=== PATIENT | female | born 1990 | race Caucasian/White ===

== ENCOUNTER 2023-04-02 09:18 | Emergency (ER) | payer BC, SELFPAY ==
--- NOTE | ~2023-04-02 | US_ITS ---
EXAMINATION: US pelvic complete w TV DATE: 04/02/2023 10:30 INDICATION: Suprapubic pain TECHNIQUE: Multiple transabdominal and endovaginal sonographic images of the pelvis were obtained. COMPARISON: None. FINDINGS: The uterus measures 8.3 x 3.5 x 5 cm. An IUD is present in the uterus in expected position. . The endometrial complex measures 4 mm. The right ovary measures 2.9 x 2 x 3.1 cm. The left ovary me asures 3.1 x 1.9 x 1.9 cm. There is normal vascular flow in the ovaries. There is no free fluid in th e pelvis. IMPRESSION: 1. No sonographic correlate for the patient's symptoms. Reviewed, dictated and finalized at location A.
--- NOTE | ~2023-04-02 | CT_ITS ---
EXAMINATION: CT abdomen pelvis w con DATE: 04/02/2023 10:37 INDICATION: Left lower quadrant and suprapubic pain. TECHNIQUE: Computed tomography (CT) of the abdomen and pelvis was performed without intravenous contr ast. The dose-length product was 1399.16 mGy-cm. Automated exposure control and iterative reconstruct ion technique were employed. COMPARISON: None. FINDINGS: Heart size normal. No significant pleural or pericardial effusion. There is mild thickening of the distal esophagus, consistent with esophagitis. Nonobstructive bowel pattern. Moderate colonic fecal loading. There is an IUD in the endometrium. Fatty infiltration of the liver. The gallbladder is present. The spleen, pancreas, adrenal glands and kidneys are unremarkable. No significant vascular abnormality. No lymphadenopathy. Bladder is unrema rkable. No abnormal pelvic masses or fluid collections. There is moderate degenerative disc disease a t L4-5. No acute bone or joint abnormality. No free air or free fluid. IMPRESSION: 1. Mild thickening of the distal esophagus, suspicious for esophagitis. 2: Hepatic steatosis. Reviewed, dictated and finalized at location []
[2023-04-02 09:25] VITALS: BP 135/89; PULSE 119; RESP 18; TEMP 36.7; O2SAT 98
--- NOTE | 2023-04-02 09:33 | ECG_ITS ---
Measurements Intervals [place] Rate: 101 P: 29 NC: 147 QRS: 6 QRSD: 86 T: 15 QT: 329 QTc: 427 Interpretive Statements SINUS TACHYCARDIA POOR R-WAVE PROGRESSION WITH LOW QRS VOLTAGE ABNORMAL RHYTHM ECG NO PREVIOUS ECG AVAILABLE FOR COMPARISON Electronically Signed On 04-02-2023 13:31:49 CDT by Rajiv Alamo M.D.
--- NOTE | 2023-04-02 09:35 | ED.ABDPAIN ---
HPI - Abdominal Pain General Chief Complaint: Abdominal Pain <CARMELITA Bah Last Filed: 04/02/23 18:13> Stated Complaint: L ABD PAIN X1DAY <CARMELITA Bah Last Filed: 04/02/23 18:13> Time Seen by Provider: 04/02/23 09:26 <Shasha Frey PA-C - Last Filed: 04/02/23 18:13> History of Present Illness HPI narrative: 33 y/o female with a history of GERD reports for evaluation of left lower quadrant/suprapubic pain that started last night around 10 PM. Patient states she had a sudden onset sharp pain in her left lower quadrant region that lasted approximately 10 to 15 minutes. She states at that time she experienced lightheadedness secondary to the pain that resolved after the pain ended, denies LOC. States the sharp pain resolved, however she has had a dull ache with intermittent twinges of pain since. Patient reports she called her RUBBER TRIMMER's office who advised her to come to the ED. She states on her way to the ED this morning, she developed left low back pain. She also states she feels like her heart is skipping beats which has been present for multiple years. She has not been evaluated for this. Denies fever, body aches or chills, chest pain or shortness of breath, urinary complaints, vaginal bleeding or discharge, concern for STDs, syncope. LMP 5/15. Last bowel movement was yesterday and normal. <CARMELITA Bah Last Filed: 04/02/23 18:13> Related Data Home Medications: Home Medications Medication Instructions Recorded Confirmed bupropion HCl 300 mg 24 hr tablet, 300 mg PO QAM 02/12/22 extended release (Wellbutrin XL) sertraline 50 mg tablet (Zoloft) 50 mg PO DAILY 02/12/22 simvastatin 10 mg tablet 10 mg PO DAILY 02/12/22 <CARMELITA Bah Last Filed: 04/02/23 18:13> Allergies/Adverse Reactions: Allergies Allergy/AdvReac Type Severity Reaction Status Date / Time No Known Allergies Allergy Verified 04/02/23 09:37 <CARMELITA Bah Last Filed: 04/02/23 18:13> Review of Systems Review of Systems: CONSTITUTIONAL: Denies fever, chills EYES: Denies visual changes, redness, or discharge. ENT: Denies rhinorrhea, congestion, sore throat, or otalgia. CARDIOVASCULAR: See HPI RESPIRATORY: Denies cough or dyspnea. GASTROINTESTINAL: See HPI GENITOURINARY: Denies dysuria or hematuria. SKIN: Denies rash or itching. MUSCULOSKELETAL: See HPI NEUROLOGIC: Denies headache, numbness, dizziness, or weakness. PSYCHIATRIC: Denies anxiety or depression. <Shasha Frey PA-C - Last Filed: 04/02/23 18:13> [facility] Past Medical History Medical History: Medical History Anxiety Encounter for Nexplanon removal (~05/2015) High cholesterol Insertion of Nexplanon (~11/2013) <Shasha Frey PA-C - Last Filed: 04/02/23 18:13> Surgical History Surgical History: Surgical History H/O nasal septoplasty (~03/2011) History of gynecological procedure insertion of ParaGard <Shasha Frey PA-C - Last Filed: 04/02/23 18:13> Family History Family History: Family History Mother Diabetes mellitus Hypertension Hypothyroid Father Hypercholesteremia Other Acute myocardial infarction <Shasha Frey PA-C - Last Filed: 04/02/23 18:13> Social History Social History: Social History Smoking status: Never smoker Alcohol intake: current Alcohol use details: occasional Substance use: never Substance use type: does not use Living arrangements: with family Occupation/Education: occupation 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
[2023-04-02] MEDS: SODIUM CHLORIDE 0.9% IV 1,000 ML 999 ML IV CONT (09:43)
[2023-04-02] MEDS: ONDANSETRON INJ 4 MG/2 ML VIAL IV PUSH (09:43)
[2023-04-02 09:55] LABS: Basophils Percent Auto 0.3 % (0.2-1.2); Eosinophils Absolute Auto 0.2 K/mm3 (0-0.3); Eosinophils Percent Auto 2.7 % (0-4.4); Hematocrit 43.6 % (37.0-47.0); Hemoglobin 14.1 g/dL (12.0-15.0); Immature Granulocyte Absolute 0.01 K/mm3 (0.00-0.031); Immature Granulocyte Percent A 0.1 % (0-0.5); Lymphocytes Absolute Auto 2.22 K/mm3 (0.9-3.2); Lymphocytes Percent Auto 31.4 % (18.3-44.2); Mean Corpuscular HGB Conc 32.3 g/dl (32-36); Mean Corpuscular Volume 86.7 fl (80-100); Mean Platelet Volume 10.9 fl (7.4-10.4); Monocytes Absolute Auto 0.5 K/mm3 (0.1-0.6); Monocytes Percent Auto 6.5 % (2.6-8.5); Neutrophils Absolute Auto 4.2 K/mm3 (1.3-6.7); Platelet Count Result 246 k/mm3 (150-375); Red Blood Count 5.03 M/mm3 (4.2-5.4); Red Cell Distribution Width 13.2 % (11.5-14.5); White Blood Count 7.1 K/mm3 (4.5-10.0)
[2023-04-02 10:00] LABS: Bacteria Urine None Seen /hpf; Non Pathogenic Casts 0-2; RBC Urine 0-2 /hpf (0-2); Squamous Epithelial Cell Urine Occasional /hpf (Few); WBC Urine 0-5 /hpf
[2023-04-02 10:08] LABS: Alanine Aminotransferase 35 U/L (6-35); Albumin Level 4.8 g/dL (3.5-5.1); Alkaline Phosphatase 76 U/L (38-126); Anion Gap 11 mmol/L (8-16); Aspartate Amino Transferase 27 U/L (14-36); Bilirubin,Total 1.2 mg/dL (0.2-1.3); Blood Urea Nitrogen 10 mg/dL (7-17); Calcium 9.5 mg/dL (8.4-10.2); Carbon Dioxide 22 mmol/L (22-30); Chloride 106 mmol/L (98-107); Estimated CRCL calculation 129 ml/min; Estimated Glomerular Filt Rate > 60; Glucose 90 mg/dL (65-110); Lipase 82 U/L (23-300); Potassium 4.2 mmol/L (3.4-5.0); Sodium 139 mmol/L (137-145)
[2023-04-02 10:18] LABS: Appearance Urine Clear (Clear); Bilirubin Urine Negative (Negative); Blood Urine Negative (Negative); Color Urine Yellow (Yellow); Glucose Urine UA Negative (Negative); Ketones Urine Negative (Negative); Leukocyte Esterase Ur Negative LEU/UL (Negative); Nitrate Urine Negative (Negative); Protein Urine Negative (Negative); Specific Grav Ur 1.009 (1.001-1.035); Urobilinogen Urine 0.2 mg/dL (<2.0)
[2023-04-02 10:20] LABS: Troponin I < 0.012 ng/mL (0.000-0.034)
[2023-04-02 10:22] LABS: Add Urine Microscopic? YES
[2023-04-02 10:25] LABS: D Dimer < 0.27 ug/mL (<0.48)
[2023-04-02 13:29] LABS: Thyroid Stimulating Hormone Reflex 0.652 uIU/mL (0.465-4.68)
[2023-04-02 14:05] LABS: Magnesium 1.8 mg/dL (1.6-2.3)
[2023-04-02 14:47] VITALS: PULSE 86; RESP 20; O2SAT 98
== END 2023-04-02 14:58 | disposition home or self-care (01) ==
PROVIDERS: Emergency Provider Physician Assistant
DX: K20.90 Esophagitis, unspecified without bleeding (principal); K76.0 Fatty (change of) liver, not elsewhere classified; K21.9 Gastro-esophageal reflux disease without esophagitis; E78.00 Pure hypercholesterolemia, unspecified; F41.9 Anxiety disorder, unspecified
CPT/HCPCS: 36415; 74177; 76830; 76856; 80053; 81001; 81025; 83690; 83735; 84443; 84484; 85025; 85380; 92960; 93005; 96361; 96374; 99284; J2405; J7030; Q9967

== ENCOUNTER 2023-04-13 11:06 | Outpatient (CLI) | payer BC, SELFPAY | END 2023-04-13 11:07 | disposition home or self-care (01) | PROVIDERS: PCP Internal Medicine; Visit Provider Nurse Practitioner | DX: R14.0 Abdominal distension (gaseous) (principal); K58.1 Irritable bowel syndrome with constipation; Z91.018 Allergy to other foods | CPT/HCPCS: 36415; 86003 ==

== ENCOUNTER 2023-04-19 13:57 | Outpatient (CLI) | payer BC, SELFPAY ==
[2023-04-21 20:13] LABS: Immunoglobulin A 141 mg/dL (47-310); TTG IGA AB <1.0 U/mL (<15.0)
== END 2023-04-19 13:58 | disposition home or self-care (01) ==
PROVIDERS: PCP Internal Medicine; Visit Provider Nurse Practitioner Family
DX: R14.0 Abdominal distension (gaseous) (principal); K58.1 Irritable bowel syndrome with constipation; Z91.018 Allergy to other foods
CPT/HCPCS: 36415; 82784; 86364

== ENCOUNTER 2023-05-21 01:07 | Day surgery (SDC) | payer BC, SELFPAY ==
[2023-05-11 14:06] VITALS: BMI 36.8
[2023-05-21 06:23] VITALS: BP 122/74; PULSE 93; RESP 20; TEMP 36.2; O2SAT 100
[2023-05-21] MEDS: LACTATED RINGERS 1,000 ML 150 ML IV CONT (06:35)
--- NOTE | 2023-05-21 07:27 | WPDANESEPPF ---
Anes - Initial Pre Proc Eval Procedure: Operation Date: 05/21/23 07:30 Proposed Procedures p Esophagogastroduodenoscopy & Colonoscopy - Jaun Reyes MD Date/Time: 05/21/23 07:27 Surgeon: Jaun Reyes MD Pre Op Diagnosis: dysphagia,GERD,abnormal diagnostic imaging Patient Data Age: 33 Gender: F Height: 1.73 m Weight: 107 kg Last Vital Signs Temp 97.2 F L 05/21/23 06:23 Pulse 93 05/21/23 06:23 Resp 20 05/21/23 06:23 BP 122/74 05/21/23 06:23 Pulse Ox 100 05/21/23 06:23 O2 Del Method Room Air 05/21/23 06:23 Allergies Allergy/AdvReac Type Severity Reaction Status Date / Time wheat AdvReac Other Verified 05/21/23 06:18 Cow Dairy AdvReac Other Uncoded 05/21/23 06:18 Egg Whites AdvReac Other Uncoded 05/21/23 06:18 Home Medications Medication Instructions Recorded Confirmed Type sertraline 50 mg tablet (Zoloft) 100 mg PO DAILY 02/12/22 05/11/23 History liraglutide 0.6 mg/0.1 mL (18 mg/3 See Rx Instructions subcut .COMPLEX 04/13/23 05/11/23 History mL) subcutaneous pen injector (Victoza 2-Melvin) metformin 500 mg tablet 500 mg PO DAILY 04/13/23 05/11/23 History pantoprazole 40 mg tablet,delayed 40 mg PO DAILY #30 tabs 04/13/23 05/11/23 Rx release rosuvastatin 40 mg tablet 40 mg PO DAILY 04/13/23 05/11/23 History spironolactone 50 mg tablet 50 mg PO DAILY 05/11/23 05/11/23 History Patient hx anesthesia problems: none Family hx anesthesia problems: none Results Review: All pre-operative results and documents have been reviewed as part of the pre-operative evaluation. [facility] Past Medical History Medical History (Updated 04/13/23 @ 11:08 by Shelly Jeffers APRN) Abnormal CT scan, esophagus Allergy to wheat Anxiety Bloating Dysphagia Encounter for Nexplanon removal (~05/2015) Gastroesophageal reflux disease Hematochezia High cholesterol Insertion of Nexplanon (~11/2013) Irritable bowel syndrome with constipation Obesity (BMI 30-39.9) Surgical History Surgical History H/O nasal septoplasty (~03/2011) History of gynecological procedure insertion of ParaGard Family History Family History Mother Diabetes mellitus Hypertension Hypothyroid Father Hypercholesteremia Other Acute myocardial infarction Social History Social History Smoking status: Never smoker Alcohol intake: current Alcohol use details: occasional Substance use: never Substance use type: does not use Living arrangements: with family Occupation/Education: occupation 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 Gender identity (if verbalized by the patient): Female Sexual Orientation (if Verbalized by the Patient): Straight or Heterosexual Spiritual care concerns: No Anes - Eval Final PreProcedure Day of Procedure 05/21/23 07:27 Patient weight: obese Heart: regular rate and rhythm Lungs: clear to auscultation Airway: Mallampati scale class II Neurological: alert and oriented Last oral intake: >/= 8 hours ASA classification: III Emergent: no Anesthetic plan: proceed Anesthesia type and monitoring: general GIVS and standard monitoring Results Review: All pre-operative results and documents have been reviewed as part of the pre-operative evaluation. Informed Consent: The patient's anesthetic plan and its attendant risks and benefits were discussed with the patient/family/POA. Questions were solicited and answers provided to the satisfaction of the patient/family/POA.
--- NOTE | 2023-05-21 07:33 | PM.HPGS ---
History of Present Illness History of Present Illness Consent: Risks, benefits, and alternatives have been discussed and questions answered. Patient agrees to proceed with procedure. Chief complaint: dysphagia,GERD,abnormal diagnostic imaging Narrative: Fabby Lewis is a 33 year old female with gerd and dysphagia, better on ppi, also ibs-c. Never had scopes Review of Systems Constitutional: Constitutional: Denies headache(s) and Denies weakness Eyes: Eyes: Denies blurry vision ENT: Reports Normal hearing present, Denies headache(s) and Denies neck pain Cardiovascular: Cardiovascular: Denies chest pain and Denies dyspnea Respiratory: Respiratory: Denies dyspnea Gastrointestinal: Gastrointestinal: Reports no additional gastrointestinal complaints Genitourinary: Genitourinary: Denies dysuria Musculoskeletal: Musculoskeletal: Denies neck pain Integumentary/Breasts: Skin/Breast: Denies dry skin Neurologic: Reports Normal hearing present, Denies headache(s) and Denies weakness Psychiatric: Psychiatric: Denies anxiety Endocrine: Endocrine: Denies change in body appearance Hematologic/Lymphatic: Hematologic/Lymphatic: Denies easy bleeding Allergic/Immunologic: Allergic/Immunologic: Denies urticaria PMFSH Past Medical History Medical History (Updated 04/13/23 @ 11:08 by Shelly Jeffers, JESUS) Abnormal CT scan, esophagus Allergy to wheat Anxiety Bloating Dysphagia Encounter for Nexplanon removal (~05/2015) Gastroesophageal reflux disease Hematochezia High cholesterol Insertion of Nexplanon (~11/2013) Irritable bowel syndrome with constipation Obesity (BMI 30-39.9) Surgical History Surgical History H/O nasal septoplasty (~03/2011) History of gynecological procedure insertion of ParaGard Family History Family History Mother Diabetes mellitus Hypertension Hypothyroid Father Hypercholesteremia Other Acute myocardial infarction Social History Social History Smoking status: Never smoker Alcohol intake: current Alcohol use details: occasional Substance use: never Substance use type: does not use Living arrangements: with family Occupation/Education: occupation 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 Gender identity (if verbalized by the patient): Female Sexual Orientation (if Verbalized by the Patient): Straight or Heterosexual Spiritual care concerns: No Meds Home Medications and Allergies Home Medications Medication Instructions Recorded Confirmed Type sertraline 50 mg tablet (Zoloft) 100 mg PO DAILY 02/12/22 05/11/23 History liraglutide 0.6 mg/0.1 mL (18 mg/3 See Rx Instructions subcut .COMPLEX 04/13/23 05/11/23 History mL) subcutaneous pen injector (Victoza 2-Melvin) metformin 500 mg tablet 500 mg PO DAILY 04/13/23 05/11/23 History pantoprazole 40 mg tablet,delayed 40 mg PO DAILY #30 tabs 04/13/23 05/11/23 Rx release rosuvastatin 40 mg tablet 40 mg PO DAILY 04/13/23 05/11/23 History spironolactone 50 mg tablet 50 mg PO DAILY 05/11/23 05/11/23 History Allergies Allergy/AdvReac Type Severity Reaction Status Date / Time wheat AdvReac Other Verified 05/21/23 06:18 Cow Dairy AdvReac Other Uncoded 05/21/23 06:18 Egg Whites AdvReac Other Uncoded 05/21/23 06:18 Vital Signs Vital Signs - 24 hr 05/21/23 06:23 Temperature 97.2 F L Pulse Rate 93 Respiratory Rate 20 Blood Pressure 122/74 Pulse Oximetry 100 Oxygen Delivery Room Air Exam Const: General: comfortable and no acute distress HENMT: Face/Nose/Sinus: Normal nares present Eyes: General: appearance normal, both eyes and all related structures Neck: Neck: no JVD Resp: Auscultation: clear to auscultation bilaterally Cardio: Rate: regular rate Rhythm: regular rhythm GI:
[2023-05-21] MEDS: BENZOCAINE (*SP) 60 ML SPRAY CAN (HURRICAINE) 1 SPRAY MUCOUS MEM (07:36)
--- NOTE | 2023-05-21 07:53 | SUR.OPER ---
EGD ended at 744, colonoscopy start at 07
[2023-05-21 08:02] VITALS: BP 85/50; PULSE 87; RESP 18; O2SAT 97
[2023-05-21 08:12] VITALS: BP 93/57; PULSE 79; RESP 18; O2SAT 97
[2023-05-21 08:22] VITALS: BP 142/76; PULSE 91; RESP 23; O2SAT 97
== END 2023-05-21 08:39 | disposition home or self-care (01) ==
PROVIDERS: PCP Internal Medicine; Visit Provider Internal Medicine Gastroenterology
PROC: 0DJ08ZZ Inspection of Upper Intestinal Tract, Via Natural or Artificial Opening Endoscopic (ICD-10-PCS; CPT 43235; principal; 2023-05-21 07:30)
DX: K58.1 Irritable bowel syndrome with constipation (principal); K64.8 Other hemorrhoids; R13.10 Dysphagia, unspecified; K20.0 Eosinophilic esophagitis; K29.70 Gastritis, unspecified, without bleeding; K44.9 Diaphragmatic hernia without obstruction or gangrene; K29.50 Unspecified chronic gastritis without bleeding; E78.00 Pure hypercholesterolemia, unspecified; F41.9 Anxiety disorder, unspecified; E66.9 Obesity, unspecified; Z68.34 Body mass index [BMI] 34.0-34.9, adult; Z79.899 Other long term (current) drug therapy; Z79.84 Long term (current) use of oral hypoglycemic drugs
CPT/HCPCS: 45378; 43239; 88305; J2704; J7120

== ENCOUNTER 2023-09-28 06:19 | Outpatient (CLI) | payer BC, SELFPAY ==
--- NOTE | 2023-10-25 13:15 | WPDHOMESLEEP ---
Sleep Study - Home Unattended Date of Study: 09/28/23 Ordering Provider: Santiago Power MD Interpreting Provider: Michaelle Berumen, DO Home Sleep Study Type: Apnea Link Air Height: 1.73 m Weight: 113.398 kg Body Mass Index: 38.0 Neck Circumference (inches): 15 Likely: 16 Reason for Sleep Study Snoring, daytime hypersomnia Sleep History The patient is a 33-year-old female with iron deficiency anemia, anxiety, depression, GERD, hyperlipidemia, irritable bowel syndrome and polycystic ovarian syndrome that had a sleep study ordered by her shearing shed worker for evaluation sleep apnea. The patient works as a senior controls technician. She rarely awakens from sleep short of breath. She frequently awakens at night with heartburn, belching or cough. She constantly snores loudly enough that others complain. She constantly has trouble sleeping when she has a cold. She denies waking up gasping for air throughout the night. She frequently has breathing problems at night observed by herself or others. She occasionally sweats excessively at night. She rarely has heart palpitations or irregular heartbeats during the night. She frequently falls asleep during the day but never while driving. She occasionally experiences loss of muscle tone when extremely emotional. She occasionally has trouble at school or work due to sleepiness. She denies sleep paralysis. She constantly experiences vivid dreamlike scenes upon awakening or falling asleep. She denies feeling of going to sleep. She rarely has nightmares. She constantly remembers her dreams. She frequently has thoughts racing through her mind. She frequently feels sad, depressed and anxious. She frequently has muscular tension. She occasionally notices parts of her body jerk. She rarely kicks during the night. She occasionally has crawling and aching feelings in her legs but rarely has leg pain during the night. She frequently grinds her teeth during sleep and frequently awakens with morning jaw pain. She is constantly bothered by pain during the day and occasionally awakened by pain during the night. She constantly wakes up feeling stiff in the morning. She constantly wakes up with sore or achy muscles. She constantly wakes up with pain in the neck, spine and other joints. She goes to bed at 9:00 p.m. on both weekdays and weekends. She can take up to several hours for her to fall asleep. She wakes up once throughout the night to urinate and can usually fall asleep within a few minutes. She wakes up at 6:00 a.m. on both weekdays and weekends. She typically gets 8 hours of sleep per night. She will stay in bed for up to an hour after waking up in the morning. She currently lives with her significant other and step children. She denies consuming any caffeinated beverages within 2 hours of bedtime. She denies engaging in physical exercise before bedtime. She denies reading before falling asleep. She will watch television before falling asleep. She denies taking naps in afternoon or the evening. She consumes 3 caffeinated beverages per day. She denies tobacco, alcohol and recreational drug use. [facility] Past Medical History Medical History Abnormal CT scan, esophagus Allergy to wheat Anxiety Bloating Dysphagia Encounter for Nexplanon removal (~05/2015) Functional burping disorder Gastroesophageal reflux disease Hematochezia High cholesterol Insertion of Nexplanon (~11/2013) Irritable bowel syndrome with constipation Obesity (BMI 30-39.9) Surgical History Surgical History H/O nasal septoplasty (~03/2011) History of gynecological procedure insertion of ParaGard Family History Family History Mother Diabetes mellitus Hypertension Hypothyroid Father Hypercholesteremia Other Acute myocardial infarction
[2023-10-25 13:25] VITALS: BMI 38.0
== END 2023-09-29 14:26 | disposition home or self-care (01) ==
LOC: ANHCSM 06:19
PROVIDERS: PCP Internal Medicine; Visit Provider Internal Medicine Cardiovascular Disease
DX: G47.30 Sleep apnea, unspecified (principal); R06.83 Snoring
CPT/HCPCS: 95806

== ENCOUNTER 2025-04-16 10:41 | Outpatient (CLI) | payer BC, SELFPAY | END 2025-04-16 10:42 | disposition home or self-care (01) | LOC: ANHLAB 10:43 | PROVIDERS: PCP Family Medicine; Visit Provider Nurse Practitioner | DX: K21.9 Gastro-esophageal reflux disease without esophagitis (principal); K58.1 Irritable bowel syndrome with constipation | CPT/HCPCS: 82653; 83993; 87045; 87269; 87427; 87449 ==